=== PATIENT | male | born 1965 | race Caucasian/White ===

== ENCOUNTER 2022-01-06 07:01 | Emergency (ER) | payer OTHER ==
[~2022-01-06] VITALS: Ht 177.8 cm; Wt 83.9 kg
== END 2022-01-06 09:45 | disposition home or self-care (01) ==
LOC: ER 07:01
DX: L27.0 Generalized skin eruption due to drugs and medicaments taken internally (principal); T50.905A Adverse effect of unspecified drugs, medicaments and biological substances, initial encounter